=== PATIENT | female | born 2000 | race Caucasian/White ===

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

== ENCOUNTER 2020-02-01 16:19 | Inpatient (IN) | payer OTHER ==
[2020-02-01] MEDS ORDERED: Misoprostol 200 MCG Tab PO PRN (16:40)
[2020-02-01] MEDS ORDERED: Misoprostol 25 MCG (1/4 of 100 MCG) Tab VAG PRN ×2 (16:40)
[2020-02-01] MEDS ORDERED: Water For Irrigation,Sterile 1,000 ML Container IRR PRN (16:40)
[2020-02-01] MEDS ORDERED: Terbutaline 1 MG/ML SDV SUBCUT PRN (16:40)
[2020-02-01] MEDS ORDERED: Sodium Chloride 0.9% 2.5 ML Syringe FLUSH PRN (16:40)
[2020-02-01] MEDS ORDERED: Lidocaine 1% 50 ML MDV INJECT PRN (16:40)
[2020-02-01] MEDS ORDERED: Carboprost Tromethamine 250 MCG/1 ML Amp IM PRN (16:40)
[2020-02-01] MEDS ORDERED: Tranexamic Acid 1,000 MG in Sodium Chloride 0.9% 100 ML IV PRN (16:40)
[2020-02-01] MEDS ORDERED: Methylergonovine 0.2 MG/1 ML Amp IM PRN (16:40)
[2020-02-01] MEDS ORDERED: Sodium Chloride 0.9% 10 ML SDV IV PRN (16:40)
[2020-02-01] MEDS ORDERED: Ondansetron 4 MG/2 ML SDV IVPUSH PRN (16:40)
[2020-02-01] MEDS ORDERED: Sodium Chloride 0.9% 10 ML Syringe FLUSH PRN (16:40)
[2020-02-01] MEDS ORDERED: Nalbuphine 10 MG/1 ML Vial IVPUSH PRN (16:40)
[2020-02-01] MEDS ORDERED: Butorphanol 1 MG/ML SDV IVPUSH PRN (16:40)
[2020-02-01] MEDS ORDERED: Oxytocin/0.9 % Sodium Chloride 30 UNIT/500 ML BAG IV SCH ×2 (16:45)
[2020-02-01 18:14] LABS: BLOOD UREA NITROGEN,BUN 8 mg/dL (7.0-18.0); CARBON DIOXIDE,CO2 21.2 mmol/L (21.0-32.0); CHLORIDE,CL 104 mmol/L (98-107); GLUCOSE RANDOM 105 mg/dL (74-106); POTASSIUM,K 3.5 mmol/L (3.5-5.1); SODIUM,NA 140 mmol/L (136-145)
[2020-02-01] MEDS ORDERED: hydrOXYzine Pamoate 25 MG Cap PO PRN (21:42)
[2020-02-02] MEDS: Lactated Ringers 1,000 ML IV SCH ×3 (07:39→18:12)
[2020-02-02] MEDS ORDERED: Ropivacaine HCl/PF 100 ML ONE ×2 (07:46→18:01)
[2020-02-02] MEDS ORDERED: fentaNYL 100 MCG/2 ML SDV ONE ×3 (07:46→19:46)
--- NOTE | 2020-02-02 08:21 | PCM.PREANE ---
Preanesthetic Assessment - Anesthesia/Transfusion/Family Hx Anesthesia History: Prior Anesthesia Without Reaction Transfusion History: No Prior Transfusion(s) - Physical Assessment NPO Status Date: 02/02/20 NPO Status Time: 05:00 Height: 1.63 m Weight: 91.081 kg ASA Class: 1 - Lab Values: Laboratory Last Values WBC 12.92 K/uL (4.0-11.0) H 02/01/20 17:25 RBC 4.00 M/uL (4.30-5.90) L 02/01/20 17:25 Hgb 11.3 g/dL (12.0-16.0) L 02/01/20 17:25 Hct 34.9 % (36.0-46.0) L 02/01/20 17:25 MCV 87.3 fL (80.0-98.0) 02/01/20 17:25 MCH 28.3 pg (27.0-32.0) 02/01/20 17:25 MCHC 32.4 g/dL (31.0-37.0) 02/01/20 17:25 RDW Std Deviation 45.3 fl (28.0-62.0) 02/01/20 17:25 RDW Coeff of [place] 14 % (11.0-15.0) 02/01/20 17:25 Plt Count 331 K/uL (150-400) 02/01/20 17:25 MPV 11.30 fL (7.40-12.00) 02/01/20 17:25 Nucleated RBC % 0.0 /100WBC 02/01/20 17:25 Nucleated RBCs # 0 K/uL 02/01/20 17:25 Sodium 140 mmol/L (136-145) 02/01/20 17:25 Potassium 3.5 mmol/L (3.5-5.1) 02/01/20 17:25 Chloride 104 mmol/L (98-107) 02/01/20 17:25 Carbon Dioxide 21.2 mmol/L (21.0-32.0) 02/01/20 17:25 BUN 8 mg/dL (7.0-18.0) 02/01/20 17:25 Creatinine 0.9 mg/dL (0.6-1.0) 02/01/20 17:25 Est Cr Clr Drug Dosing 86.82 mL/min 02/01/20 17:25 Estimated GFR (MDRD) > 60.0 ml/min 02/01/20 17:25 Glucose 105 mg/dL (74-106) 02/01/20 17:25 Uric Acid 3.9 mg/dL (2.6-7.2) 02/01/20 17:25 Calcium 9.3 mg/dL (8.5-10.1) 02/01/20 17:25 Total Bilirubin 0.2 mg/dL (0.2-1.0) 02/01/20 17:25 AST 17 IU/L (15-37) 02/01/20 17:25 ALT 16 IU/L (14-63) 02/01/20 17:25 Alkaline Phosphatase 141 U/L (46-116) H 02/01/20 17:25 Total Protein 6.3 g/dL (6.4-8.2) L 02/01/20 17:25 Albumin 2.6 g/dL (3.4-5.0) L 02/01/20 17:25 Globulin 3.7 g/dL (2.6-4.0) 02/01/20 17:25 Albumin/Globulin Ratio 0.7 (0.9-1.6) L 02/01/20 17:25 Ur Random Creatinine 47.0 mg/dL 02/01/20 21:42 U Random Total Protein 11.6 mg/dL (<11.9) 02/01/20 21:42 Protein/Creatinin Ratio 0.2 02/01/20 21:42 Blood Type A POSITIVE 02/01/20 17:25 Antibody Screen NEGATIVE 02/01/20 17:25 - Allergies Allergies/Adverse Reactions: Allergies Allergy/AdvReac Type Severity Reaction Status Date / Time No Known Allergies Allergy Verified 02/01/20 16:39 - Acknowledgements Anesthesia Type Planned: Epidural Pt an Appropriate Candidate for the Planned Anesthesia: Yes Alternatives and Risks of Anesthesia Discussed w Pt/Guardian: Yes Pt/Guardian Understands and Agrees with Anesthesia Plan: Yes PreAnesthesia Questionnaire - Past Health History Medical/Surgical History: Denies Medical/Surgical History HEENT History: Reports: None 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: Neurological History: Reports: Seizure Psychiatric History: Reports: ADHD, Anxiety, Depression, PTSD - Past Surgical History HEENT Surgical History: Reports: Myringotomy w Tube(s) Neurological Surgical History: Reports: None - SUBSTANCE USE Smoking Status *Q: Never Smoker Recreational Drug Use History: No - HOME MEDS Home Medications: Home Meds Pnv No.95/Ferrous Fum/Folic AC [ Tablet] 1 tab PO DAILY 02/01/20 [ History] - CURRENT (IN HOUSE) MEDS Current Meds: Current Medications Butorphanol Tartrate (Stadol) 1 mg IVPUSH Q1H PRN PRN Reason: Pain Last Admin: 02/02/20 07:08 Dose: 1 mg Carboprost Tromethamine (Hemabate Ds) 250 mcg IM ASDIRECTED PRN PRN Reason: Post Hemorrhage Hydroxyzine Pamoate (Vistaril) 50 mg PO BEDTIME PRN PRN Reason: Insomnia Last Admin: 02/02/20 00:26 Dose: 50 mg Lactated Ringer's (Ringers, Lactated) 1,000 mls @ 150 mls/hr IV ASDIRECTED YARI Oxytocin/Sodium Chloride (Oxytocin 30 Unit/500 Ml-Ns) 30 unit in 500 mls @ 999 mls/hr IV TITRATE YARI Oxytocin/Sodium Chloride (Oxytocin 30 Unit/500 Ml-Ns) 30 unit in 500 mls @ 2 mls/hr IV TITRATE YARI; Protocol Tranexamic Acid 1,000 mg/ (Sodium Chloride) 110 mls @ 660 mls/hr IV ONETIME PRN PRN Reason: Bleeding Lidocaine HCl (Xylocaine 1%) 50 ml INJECT ONETIME PRN PRN Reason: Laceration repair Methylergonovine Maleate (Methergine) 0.2 mg IM ASDIRECTED PRN PRN Reason: Post Hemorrhage Misoprostol (Cytotec) 200 mcg PO ONETIME PRN PRN Reason: Post Hemorrhage Misoprostol (Cytotec) 25 mcg VAG ONETIME PRN PRN Reason: Cervical Ripening Last Admin: 02/01/20 18:26 Dose: 25 mcg Misoprostol (Cytotec) 25 mcg VAG Q6H PRN PRN Reason: Cervical Ripening Last Admin: 02/02/20 00:26 Dose: 25 mcg Nalbuphine HCl (Nubain) 10 mg IVPUSH Q1H PRN PRN Reason: Pain (severe 7-10) Ondansetron HCl (Zofran) 4 mg IVPUSH Q6H PRN PRN Reason: Nausea/Vomiting Sodium Chloride (Saline Flush) 10 ml FLUSH ASDIRECTED PRN PRN Reason: Keep Vein Open Sodium Chloride (Saline Flush) 2.5 ml FLUSH ASDIRECTED PRN PRN Reason: Keep Vein Open Sodium Chloride (Normal Saline) 10 ml IV ASDIRECTED PRN PRN Reason: IV Use Sterile Water (Sterile Water For Irrigation) 1,000 ml IRR ASDIRECTED PRN PRN Reason: delivery Terbutaline Sulfate (Brethine) 0.25 mg SUBCUT ASDIRECTED PRN PRN Reason: Tacysystole Discontinued Medications Fentanyl (Sublimaze) Confirm Administered Dose 100 mcg .ROUTE .[place]ovo-MED ONE Stop: 02/02/20 07:47 Ropivacaine (Naropin 0.2%) Confirm Administered Dose 100 mls @ as directed .ROUTE .MeggatelMED ONE Stop: 02/02/20 07:47
--- NOTE | 2020-02-02 08:24 | PCM.PRNOTE ---
- Free Text/Narrative Note: Anes Note Patient requests epidural for L&D. Sitting position, level L3-L4 midline approach. Sterile technique. Chloraprep scrub to lumbar area. Sterile fenestrated drape applied. Epidural space easily achieved. JOAQUIN at 4 cm. Cath threaded 5 cm with ease. Cath secured at 10 cm at skin using sterile clear adhesive dressing. 0755 Test 3 cc 1.5% lido with epi negative. 0800 Load 10 cc 0.2% ropivicaine with 1 mcg cc fentanyl in slow divided doses. 0805 Pump started with 90 cc same solution. Rate is 8 cc hr with 6 cc q 20 min prn bolus. Kristian well. Time with patient [id number] Erik Kaminski CRNA
[2020-02-02] MEDS ORDERED: Lidocaine 2% with EPINEPHrine 1:100,000 20 ML MDV ONE (19:47)
--- NOTE | 2020-02-02 19:54 | PCM.PRNOTE ---
- Free Text/Narrative Note: Anes NOte Epidural bag change. Current infusion is complete. A new 100 cc bag of 02.% ropiviciane with 1 mcg cc fentanyl added wasolaced. Rate is 8 cc hr with 6 cc q 20 min prn bolus. Patient reports excellent analgesia. Time with patient [id number] Erik Kaminski CRNA
--- NOTE | 2020-02-02 19:56 | PCM.PRNOTE ---
- Free Text/Narrative Note: Anes NOte Sitting dose. Patient reports slightly incomplete analgesia of the perineal area. A sitting dose consisting of 5 cc 2% lido with epi plus 100 mcg fentanyl was slowly injected into the epidural catheter. Epidural infusion also continues. Time with patient [id number] Erik Kaminski CRNA
[2020-02-02] MEDS ORDERED: oxyCODONE 5 MG Tab PO PRN (23:27)
[2020-02-02] MEDS ORDERED: Lanolin 100% Cream 7 GM Tube TOP PRN (23:27)
[2020-02-02] MEDS ORDERED: Docusate Sodium 100 MG Cap PO PRN (23:27)
[2020-02-02] MEDS ORDERED: Benzocaine/Menthol 20%-0.5% Spray 78 GM Cannister TOP PRN (23:27)
[2020-02-02] MEDS ORDERED: Witch Hazel Medicated Pads 40/Jar TOP PRN (23:27)
[2020-02-02] MEDS ORDERED: Bisacodyl 10 MG Supp RECTAL PRN (23:27)
--- NOTE | 2020-02-02 23:32 | PCM.DEL ---
L & D Note - General Info Date of Service: 02/02/20 Mother's Due Date: 02/21/20 - Delivery Note Labor: Induced by Oxytocin (induction for PROM) Cervical Ripening Method: Balloon Device, Misoprostil Delivery Outcome: Livebirth Infant Delivery Method: Spontaneous Vaginal Delivery-Single Presentation: Vertex Nuchal Cord: None Anesthesia Type: Epidural Episiotomy Type: None Laceration: Vaginal Suture type: Vicryl Suture size: 2-0 Placenta: Intact, Spontaneous Cord: 2 Vessels Resuscitation Needed: No : Stimulated, Warmed - General Info Date of Service: 02/02/20 - Patient Data Weight - Most Recent: 91.081 kg Med Orders - Current: Current Medications Butorphanol Tartrate (Stadol) 1 mg IVPUSH Q1H PRN PRN Reason: Pain Last Admin: 02/02/20 07:08 Dose: 1 mg Carboprost Tromethamine (Hemabate Ds) 250 mcg IM ASDIRECTED PRN PRN Reason: Post Hemorrhage Hydroxyzine Pamoate (Vistaril) 50 mg PO BEDTIME PRN PRN Reason: Insomnia Last Admin: 02/02/20 00:26 Dose: 50 mg Lactated Ringer's (Ringers, Lactated) 1,000 mls @ 150 mls/hr IV ASDIRECTED YARI Last Admin: 02/02/20 18:12 Dose: 150 mls/hr Oxytocin/Sodium Chloride (Oxytocin 30 Unit/500 Ml-Ns) 30 unit in 500 mls @ 999 mls/hr IV TITRATE YARI Oxytocin/Sodium Chloride (Oxytocin 30 Unit/500 Ml-Ns) 30 unit in 500 mls @ 2 mls/hr IV TITRATE YARI; Protocol Last Titration: 02/02/20 14:39 Dose: 22 munits/min, 22 mls/hr Tranexamic Acid 1,000 mg/ (Sodium Chloride) 110 mls @ 660 mls/hr IV ONETIME PRN PRN Reason: Bleeding Lidocaine HCl (Xylocaine 1%) 50 ml INJECT ONETIME PRN PRN Reason: Laceration repair Methylergonovine Maleate (Methergine) 0.2 mg IM ASDIRECTED PRN PRN Reason: Post Hemorrhage Misoprostol (Cytotec) 200 mcg PO ONETIME PRN PRN Reason: Post Hemorrhage Misoprostol (Cytotec) 25 mcg VAG ONETIME PRN PRN Reason: Cervical Ripening Last Admin: 02/01/20 18:26 Dose: 25 mcg Misoprostol (Cytotec) 25 mcg VAG Q6H PRN PRN Reason: Cervical Ripening Last Admin: 02/02/20 00:26 Dose: 25 mcg Nalbuphine HCl (Nubain) 10 mg IVPUSH Q1H PRN PRN Reason: Pain (severe 7-10) Ondansetron HCl (Zofran) 4 mg IVPUSH Q6H PRN PRN Reason: Nausea/Vomiting Last Admin: 02/02/20 09:20 Dose: 4 mg Sodium Chloride (Saline Flush) 10 ml FLUSH ASDIRECTED PRN PRN Reason: Keep Vein Open Sodium Chloride (Saline Flush) 2.5 ml FLUSH ASDIRECTED PRN PRN Reason: Keep Vein Open Sodium Chloride (Normal Saline) 10 ml IV ASDIRECTED PRN PRN Reason: IV Use Sterile Water (Sterile Water For Irrigation) 1,000 ml IRR ASDIRECTED PRN PRN Reason: delivery Terbutaline Sulfate (Brethine) 0.25 mg SUBCUT ASDIRECTED PRN PRN Reason: Tacysystole Discontinued Medications Fentanyl (Sublimaze) Confirm Administered Dose 100 mcg .ROUTE .STK-MED ONE Stop: 02/02/20 07:47 Last Admin: 02/02/20 09:42 Dose: Not Given Fentanyl (Sublimaze) Confirm Administered Dose 100 mcg .ROUTE .STK-MED ONE Stop: 02/02/20 18:02 Fentanyl (Sublimaze) Confirm Administered Dose 100 mcg .ROUTE .STK-MED ONE Stop: 02/02/20 19:47 Ropivacaine (Naropin 0.2%) Confirm Administered Dose 100 mls @ as directed .ROUTE .STK-MED ONE Stop: 02/02/20 07:47 Last Admin: 02/02/20 09:42 Dose: Not Given Ropivacaine (Naropin 0.2%) Confirm Administered Dose 100 mls @ as directed .ROUTE .STK-MED ONE Stop: 02/02/20 18:02 - Problem List & Annotations (1) Vaginal delivery SNOMED Code(s): 276946365 Code(s): O80 - ENCOUNTER FOR FULL-TERM UNCOMPLICATED DELIVERY Status: Acute Current Visit: Yes - Problem List Review Problem List Initiated/Reviewed/Updated: No - My Orders Last 24 Hours: My Active Orders 02/02/20 23:27 Patient Status [ADT] Routine May Shower [RC] ASDIRECTED Notify Provider Vital Signs [RC] ASDIRECTED Up ad Nadya [RC] ASDIRECTED Vital Signs [RC] PER UNIT ROUTINE Acetaminophen [Tylenol Extra Strength] 1,000 mg PO Q6H PRN Benzocaine/Menthol [Dermoplast Pain Relief 20%-0.5% [place]] 78 gm TOP ASDIRECTED PRN Docusate Sodium [Colace] 100 mg PO BID PRN Ibuprofen [Motrin] 800 mg PO Q8H PRN Lanolin [Lansinoh HPA] See Dose Instructions TOP ASDIRECTED PRN bisacodyL [Dulcolax] 10 mg RECTAL ONETIME PRN oxyCODONE 5 mg PO Q2H PRN witch Bernice [Tucks] 1 pad TOP ASDIRECTED PRN Assess Lochia [WOMSER] Per Unit Routine Assess Uterine Involution [WOMSER] Per Unit Routine Breast Pump [WOMSER] Per Unit Routine Peripheral IV Discontinue [OM.PC] Routine 02/02/20 23:28 Cooling Warming Measures [RC] ASDIRECTED Ice Therapy [OM.PC] Per Unit Routine Perineal Care [OM.PC] Per Unit Routine Sitz Bath [OM.PC] Per Unit Routine 02/02/20 Dinner Regular Diet [DIET] 02/03/20 05:11 HEMOGLOBIN/HEMATOCRIT,HH [HEME] Timed - Assessment Assessment:: 19yo s/p at 37w2d - Plan Plan:: Admit to unit for routine care.
--- NOTE | 2020-02-03 00:30 | OR ---
SURGEON: Dayana Roldan MD DATE OF PROCEDURE: 02/02/2020 PREOPERATIVE DIAGNOSES: 1. A 19-year-old G1, P0-0 at 37 weeks 1 day gestation. 2. Premature rupture of membranes. 3. Group B Streptococcus negative. 4. Late care. POSTOPERATIVE DIAGNOSES: 1. A 19-year-old G1, P1-0-0-1 status post spontaneous vaginal delivery at 37 weeks 2 days' gestation. 2. Group B Streptococcus negative. 3. Late care. PROCEDURE: Spontaneous vaginal delivery and repair of vaginal laceration. PRIMARY SURGEON: Dr. Dayana Roldan, ANESTHESIA: Epidural. ESTIMATED BLOOD LOSS: 300 mL. FINDINGS: Live male in cephalic presentation. scores 9 and 9 at 1 and 5 minutes respectively. Weight pending. Placenta intact with 3-vessel cord. Vaginal laceration. INDICATIONS: This is a 19-year-old G1, P0, who presented at 37 weeks 1 day gestation, complaining of leakage of fluid. She had presented the evening prior at 37 weeks 0 day gestation, however, and leakage of fluid was ruled out. At 37 and 1, she presented to the clinic, complaining again of leakage of fluid and an AmniSure was positive. She was admitted to Labor and Delivery for induction of labor due to premature rupture of membranes. Induction of labor was started with Cytotec at approximately 1 cm dilated. A Collado bulb was placed. The Collado bulb was removed when she was 5 cm dilated. She received an epidural for pain control. She was started on Pitocin for continued induction of labor. She progressed to complete cervical dilation and began pushing. I was called to the room. DESCRIPTION OF PROCEDURE: I arrived to the room and the patient's cervix was completely dilated with scalp at +4 station. Over the next 2 contractions, she pushed and delivered a live male . The head was delivered followed by the shoulders and remainder of the body. The infant was placed on the maternal abdomen. After approximately 60 seconds, cord was clamped and cut. The placenta then delivered via the Lee-Chakraborty maneuver, intact and with 3-vessel cord. Cord blood was obtained. The perineum was inspected and a vaginal laceration was noted. This was repaired to anatomy and hemostasis with 2-0 Vicryl. Estimated blood loss was 300 mL. The patient and infant tolerated the delivery well. JESSICA / MODL /[id number]
[2020-02-03] MEDS: Ibuprofen 800 MG Tab PO PRN ×2 (01:20→08:46)
--- NOTE | 2020-02-03 08:39 | PCM48HPAN ---
Post Anesthesia Note - EVALUATION WITHIN 48HRS OF ANESTHETIC Vital Signs in Normal Range: Yes Patient Participated in Evaluation: Yes Respiratory Function Stable: Yes Airway Patent: Yes Cardiovascular Function Stable: Yes Hydration Status Stable: Yes Pain Control Satisfactory: Yes Nausea and Vomiting Control Satisfactory: Yes Mental Status Recovered: Yes Vital Signs: Last Vital Signs Temp 35.9 C L 02/03/20 08:00 Pulse 72 02/03/20 08:00 Resp 16 02/03/20 08:00 BP 121/62 02/03/20 08:00 Pulse Ox 96 02/03/20 08:00
[2020-02-03] MEDS: Acetaminophen 500 MG Tab PO PRN ×2 (08:47→15:28)
--- NOTE | 2020-02-03 16:08 | PCM.PNPP ---
- General Info Date of Service: 02/03/20 Subjective Update: Patient without complaints today. Struggled with overnight, is currently bottle feeding. Minimal lochia and pain. Tolerating oral intake, voiding, ambulating. Functional Status: Reports: Pain Controlled, Tolerating Diet, Ambulating, Urinating - Review of Systems General: Reports: No Symptoms HEENT: Reports: No Symptoms Pulmonary: Reports: No Symptoms Cardiovascular: Reports: No Symptoms Gastrointestinal: Reports: No Symptoms Genitourinary: Reports: No Symptoms Musculoskeletal: Reports: No Symptoms Skin: Reports: No Symptoms Neurological: Reports: No Symptoms Psychiatric: Reports: No Symptoms - Patient Data Vital Signs - Most Recent: Last Vital Signs Temp 35.9 C L 02/03/20 08:00 Pulse 72 02/03/20 08:00 Resp 16 02/03/20 08:00 BP 121/62 02/03/20 08:00 Pulse Ox 96 02/03/20 08:00 Weight - Most Recent: 91.081 kg Lab Results - Last 24 Hours: Laboratory Results - last 24 hr 02/03/20 Range/Units 05:30 Hgb 10.6 L (12.0-16.0) g/dL Hct 33.3 L (36.0-46.0) % Med Orders - Current: Current Medications Acetaminophen (Tylenol Extra Strength) 1,000 mg PO Q6H PRN PRN Reason: Pain Last Admin: 02/03/20 15:28 Dose: 1,000 mg Benzocaine/Menthol (Dermoplast Pain Relief 20%-0.5% Edison) 78 gm TOP ASDIRECTED PRN PRN Reason: Perineal Comfort Measure Last Admin: 02/03/20 01:21 Dose: 78 gm Bisacodyl (Dulcolax) 10 mg RECTAL ONETIME PRN PRN Reason: Constipation Butorphanol Tartrate (Stadol) 1 mg IVPUSH Q1H PRN PRN Reason: Pain Last Admin: 02/02/20 07:08 Dose: 1 mg Carboprost Tromethamine (Hemabate Ds) 250 mcg IM ASDIRECTED PRN PRN Reason: Post Hemorrhage Docusate Sodium (Colace) 100 mg PO BID PRN PRN Reason: Constipation Last Admin: 02/03/20 08:47 Dose: 100 mg Emollient Ointment (Lansinoh Hpa) 0 gm TOP ASDIRECTED PRN PRN Reason: Sore Nipples Last Admin: 02/03/20 01:20 Dose: 7 gm Hydroxyzine Pamoate (Vistaril) 50 mg PO BEDTIME PRN PRN Reason: Insomnia Last Admin: 02/02/20 00:26 Dose: 50 mg Lactated Ringer's (Ringers, Lactated) 1,000 mls @ 150 mls/hr IV ASDIRECTED YARI Last Admin: 02/02/20 18:12 Dose: 150 mls/hr Oxytocin/Sodium Chloride (Oxytocin 30 Unit/500 Ml-Ns) 30 unit in 500 mls @ 999 mls/hr IV TITRATE YARI Oxytocin/Sodium Chloride (Oxytocin 30 Unit/500 Ml-Ns) 30 unit in 500 mls @ 2 mls/hr IV TITRATE YARI; Protocol Last Titration: 02/02/20 14:39 Dose: 22 munits/min, 22 mls/hr Tranexamic Acid 1,000 mg/ (Sodium Chloride) 110 mls @ 660 mls/hr IV ONETIME PRN PRN Reason: Bleeding Ibuprofen (Motrin) 800 mg PO Q8H PRN PRN Reason: Pain Last Admin: 02/03/20 08:46 Dose: 800 mg Lidocaine HCl (Xylocaine 1%) 50 ml INJECT ONETIME PRN PRN Reason: Laceration repair Methylergonovine Maleate (Methergine) 0.2 mg IM ASDIRECTED PRN PRN Reason: Post Hemorrhage Misoprostol (Cytotec) 200 mcg PO ONETIME PRN PRN Reason: Post Hemorrhage Misoprostol (Cytotec) 25 mcg VAG ONETIME PRN PRN Reason: Cervical Ripening Last Admin: 02/01/20 18:26 Dose: 25 mcg Misoprostol (Cytotec) 25 mcg VAG Q6H PRN PRN Reason: Cervical Ripening Last Admin: 02/02/20 00:26 Dose: 25 mcg Nalbuphine HCl (Nubain) 10 mg IVPUSH Q1H PRN PRN Reason: Pain (severe 7-10) Ondansetron HCl (Zofran) 4 mg IVPUSH Q6H PRN PRN Reason: Nausea/Vomiting Last Admin: 02/02/20 09:20 Dose: 4 mg Oxycodone HCl (Oxycodone) 5 mg PO Q2H PRN PRN Reason: Pain Sodium Chloride (Saline Flush) 10 ml FLUSH ASDIRECTED PRN PRN Reason: Keep Vein Open Sodium Chloride (Saline Flush) 2.5 ml FLUSH ASDIRECTED PRN PRN Reason: Keep Vein Open Sodium Chloride (Normal Saline) 10 ml IV ASDIRECTED PRN PRN Reason: IV Use Sterile Water (Sterile Water For Irrigation) 1,000 ml IRR ASDIRECTED PRN PRN Reason: delivery Terbutaline Sulfate (Brethine) 0.25 mg SUBCUT ASDIRECTED PRN PRN Reason: Tacysystole Witch Bernice (Tucks) 1 pad TOP ASDIRECTED PRN PRN Reason: comfort care Discontinued Medications Fentanyl (Sublimaze) Confirm Administered Dose 100 mcg .ROUTE .STK-MED ONE Stop: 02/02/20 07:47 Last Admin: 02/02/20 09:42 Dose: Not Given Fentanyl (Sublimaze) Confirm Administered Dose 100 mcg .ROUTE .STK-MED ONE Stop: 02/02/20 18:02 Fentanyl (Sublimaze) Confirm Administered Dose 100 mcg .ROUTE .STCredit [employer]-MED ONE Stop: 02/02/20 19:47 Ropivacaine (Naropin 0.2%) Confirm Administered Dose 100 mls @ as directed .ROUTE .STCredit [employer]-MED ONE Stop: 02/02/20 07:47 Last Admin: 02/02/20 09:42 Dose: Not Given Ropivacaine (Naropin 0.2%) Confirm Administered Dose 100 mls @ as directed .ROUTE .STK-MED ONE Stop: 02/02/20 18:02 Lidocaine/Epinephrine (Xylocaine 2% With Epinephrine 1:100,000) 20 ml .ROUTE .STK-MED ONE Stop: 02/02/20 19:48 - Infant Interaction Disposition, : at Bedside Feeding: Attempted ; Nursed Fair/Poor, Bottle Fed Support Person: Significant Other - Recovery Exam Fundal Tone: Firm Fundal Level: 2 Fingerbreadths Below Umbilicus Fundal Placement: Midline Lochia Amount: Small Lochia Color: Rubra/Red Bladder Status: Nonpalpable, Voiding Urinary Elimination: Voided - Exam General: Alert, Oriented Neck: Supple Lungs: Clear to Auscultation Cardiovascular: Regular Rate, Regular Rhythm GI/Abdominal Exam: Soft, Non-Tender Extremities: Non-Tender, No Pedal Edema Skin: Warm, Dry, Intact Neurological: No New Focal Deficit Psy/Mental Status: Alert, Normal Affect, Normal Mood - Problem List & Annotations (1) Vaginal delivery SNOMED Code(s): 478058737 Code(s): O80 - ENCOUNTER FOR FULL-TERM UNCOMPLICATED DELIVERY Status: Acute Current Visit: Yes - Problem List Review Problem List Initiated/Reviewed/Updated: Yes - My Orders Last 24 Hours: My Active Orders 02/02/20 23:27 Patient Status [ADT] Routine Notify Provider Vital Signs [RC] ASDIRECTED Acetaminophen [Tylenol Extra Strength] 1,000 mg PO Q6H PRN Benzocaine/Menthol [Dermoplast Pain Relief 20%-0.5% Edison] 78 gm TOP ASDIRECTED PRN Docusate Sodium [Colace] 100 mg PO BID PRN Ibuprofen [Motrin] 800 mg PO Q8H PRN Lanolin [Lansinoh HPA] See Dose Instructions TOP ASDIRECTED PRN bisacodyL [Dulcolax] 10 mg RECTAL ONETIME PRN oxyCODONE 5 mg PO Q2H PRN witch Bernice [Tucks] 1 pad TOP ASDIRECTED PRN Assess Lochia [WOMSER] Per Unit Routine Assess Uterine Involution [WOMSER] Per Unit Routine Breast Pump [WOMSER] Per Unit Routine Peripheral IV Discontinue [OM.PC] Routine 02/02/20 23:28 Ice Therapy [OM.PC] Per Unit Routine Perineal Care [OM.PC] Per Unit Routine Sitz Bath [OM.PC] Per Unit Routine 02/02/20 Dinner Regular Diet [DIET] - Assessment Assessment:: 19yo s/p at 37w2d, PPD#1 - Plan Plan:: Patient desires discharge home at 24-hours if infant cleared. Reviewed discharge instructions. All questions answered.
[2020-02-03 20:01] VITALS: BP 138/74; PULSE 74
== END 2020-02-03 23:59 | disposition home or self-care (01) | DRG 806 ==
LOC: MW.OB 16:19 → OBSVTOIN 22:58 → MW.OB 22:58
PROVIDERS: ADMIT Obstetrics & Gynecology; ATTEND Obstetrics & Gynecology
PROC: 10E0XZZ Delivery of Products of Conception, External Approach (ICD-10-PCS; principal; 2020-02-01)
PROC: 3E0P7VZ Introduction of Hormone into Female Reproductive, Via Natural or Artificial Opening (ICD-10-PCS; 2020-02-01)
PROC: 3E033VJ Introduction of Other Hormone into Peripheral Vein, Percutaneous Approach (ICD-10-PCS; 2020-02-01)
PROC: 0HQ9XZZ Repair Perineum Skin, External Approach (ICD-10-PCS; 2020-02-01)
PROC: 0U7C7ZZ Dilation of Cervix, Via Natural or Artificial Opening (ICD-10-PCS; 2020-02-01)
PROC: 3E0R3BZ Introduction of Anesthetic Agent into Spinal Canal, Percutaneous Approach (ICD-10-PCS; 2020-02-01)
DX: O75.3 Other infection during labor (principal); O47.1 False labor at or after 37 completed weeks of gestation; Z37.0 Single live birth; Z3A.37 37 weeks gestation of pregnancy; O12.14 Gestational proteinuria, complicating childbirth
CPT/HCPCS: 36415; 51702; 59025; 59200; 59409; 80053; 82570; 84156; 84550; 85014; 85018; 85027; 86592; 86593; 86850; 86900; 86901; A9270-GY; J0595; J2405; J2590; J2795; J3010; J7120

== ENCOUNTER 2022-02-26 09:38 | Inpatient (IN) | payer OTHER ==
[2022-02-26] MEDS ORDERED: Methylergonovine 0.2 MG/1 ML Amp IM PRN (09:43)
[2022-02-26] MEDS ORDERED: Sodium Chloride 0.9% 20 ML SDV IV PRN (09:43)
[2022-02-26] MEDS ORDERED: Sodium Chloride 0.9% 2.5 ML Syringe FLUSH PRN (09:43)
[2022-02-26] MEDS ORDERED: Misoprostol 200 MCG Tab PO PRN (09:43)
[2022-02-26] MEDS ORDERED: Sodium Chloride 0.9% 10 ML Syringe FLUSH PRN (09:43)
[2022-02-26] MEDS ORDERED: Terbutaline 1 MG/ML SDV SUBCUT PRN (09:43)
[2022-02-26] MEDS ORDERED: Carboprost Tromethamine 250 MCG/1 ML Amp IM PRN (09:43)
[2022-02-26] MEDS ORDERED: Tranexamic Acid 1,000 MG in Sodium Chloride 0.9% 100 ML IV PRN ×2 (09:43→23:44)
[2022-02-26] MEDS ORDERED: Misoprostol 25 MCG (1/4 of 100 MCG) Tab VAG PRN ×2 (09:43)
[2022-02-26] MEDS ORDERED: Water For Irrigation,Sterile 1,000 ML Container IRR PRN (09:43)
[2022-02-26] MEDS ORDERED: Lidocaine 1% 50 ML MDV INJECT PRN (09:43)
[2022-02-26] MEDS ORDERED: Butorphanol 1 MG/ML SDV IVPUSH PRN (09:43)
[2022-02-26] MEDS ORDERED: Oxytocin/0.9 % Sodium Chloride 30 UNIT/500 ML BAG IV SCH ×2 (09:45)
[2022-02-26] MEDS ORDERED: Labetalol 100 MG/20 ML MDV IVPUSH PRN ×2 (10:30→18:47)
[2022-02-26 11:16] LABS: BLOOD UREA NITROGEN,BUN 10 mg/dL (7.0-18.0); CARBON DIOXIDE,CO2 20.2 mmol/L (21.0-32.0); CHLORIDE,CL 103 mmol/L (98-107); GLUCOSE RANDOM 99 mg/dL (74-106); POTASSIUM,K 3.5 mmol/L (3.5-5.1); SODIUM,NA 136 mmol/L (136-145)
[2022-02-26] MEDS: Lactated Ringers 1,000 ML IV SCH ×4 (11:17→20:57)
[2022-02-26] MEDS ORDERED: Ropivacaine in NACL,ISO-OSM/PF 400 ML ONE (20:08)
[2022-02-26] MEDS ORDERED: Ropivacaine in NACL,ISO-OSM/PF 800 MG in Premix Bag 1 BAG EPIDUR SCH ×2 (20:30)
[2022-02-26] MEDS ORDERED: Bupivacaine 0.25% 10 ML SDV ONE (20:32)
[2022-02-26] MEDS: ePHEDrine 50 MG/ML SDV IVPUSH PRN ×3 (22:22→22:41)
[2022-02-26] MEDS ORDERED: Lanolin 100% Cream 7 GM Tube TOP PRN (23:44)
[2022-02-26] MEDS ORDERED: Ibuprofen 800 MG Tab PO PRN (23:44)
[2022-02-26] MEDS ORDERED: Ibuprofen 400 MG Tab PO PRN (23:44)
[2022-02-26] MEDS ORDERED: Bisacodyl 10 MG Supp RECTAL PRN (23:44)
[2022-02-26] MEDS ORDERED: Witch Hazel Medicated Pads 40/Jar TOP PRN (23:44)
[2022-02-26] MEDS ORDERED: Acetaminophen 500 MG Tab PO PRN ×2 (23:44)
[2022-02-26] MEDS ORDERED: Benzocaine/Menthol 20%-0.5% Spray 78 GM Cannister TOP PRN (23:44)
[2022-02-26] MEDS ORDERED: Docusate Sodium 100 MG Cap PO PRN (23:44)
[2022-02-27] MEDS: Prenatal Multivitamin with Calcium/Folic Acid/Iron Tab PO SCH (20:21)
[2022-02-28 09:15] VITALS: BP 135/55; PULSE 68
[2022-02-28] MEDS: Prenatal Multivitamin with Calcium/Folic Acid/Iron Tab PO SCH (09:52)
== END 2022-02-28 12:36 | disposition home or self-care (01) | DRG 807 ==
LOC: MW.OBCHECK 09:38 → MW.OB 09:39 → MW.OBCHECK 23:23 → MW.OB 23:23 → OBSVTOIN 23:24 → MW.OB 02-27 07:29
PROVIDERS: ADMIT Obstetrics & Gynecology; ATTEND Obstetrics & Gynecology
PROC: 10E0XZZ Delivery of Products of Conception, External Approach (ICD-10-PCS; principal; 2022-02-26)
PROC: 0KQM0ZZ Repair Perineum Muscle, Open Approach (ICD-10-PCS; 2022-02-26)
PROC: 10907ZC Drainage of Amniotic Fluid, Therapeutic from Products of Conception, Via Natural or Artificial Opening (ICD-10-PCS; 2022-02-26)
PROC: 3E033VJ Introduction of Other Hormone into Peripheral Vein, Percutaneous Approach (ICD-10-PCS; 2022-02-26)
PROC: 3E0R3BZ Introduction of Anesthetic Agent into Spinal Canal, Percutaneous Approach (ICD-10-PCS; 2022-02-26)
PROC: 00HU33Z Insertion of Infusion Device into Spinal Canal, Percutaneous Approach (ICD-10-PCS; 2022-02-26)
DX: O13.4 Gestational [pregnancy-induced] hypertension without significant proteinuria, complicating childbirth (principal); Z37.0 Single live birth; Z3A.39 39 weeks gestation of pregnancy; O70.0 First degree perineal laceration during delivery; Z20.822 Contact with and (suspected) exposure to COVID-19
CPT/HCPCS: 01967; 36415; 51702; 59025; 59409; 80053; 82570; 82803; 84156; 84550; 84560; 85014; 85018; 85027; 86592; 86850; 86900; 86901; A9270-GY; J2590; J2795; J3490; J7120; U0002

== ENCOUNTER 2023-03-26 08:04 | Emergency (ER) | payer OTHER ==
[2023-03-26] MEDS ORDERED: Ibuprofen 600 MG Tab PO ONE (09:01)
[2023-03-26 09:12] VITALS: BP 114/65; PULSE 87
== END 2023-03-26 09:17 | disposition home or self-care (01) ==
LOC: MW.ED 08:04
DX: S46.312A Strain of muscle, fascia and tendon of triceps, left arm, initial encounter (principal); X50.9XXA Other and unspecified overexertion or strenuous movements or postures, initial encounter
CPT/HCPCS: 99283; A9270; 99282

== ENCOUNTER 2024-10-23 02:04 | Emergency (ER) | payer MEDICAID, OTHER ==
[2024-10-23 02:15] VITALS: BP 135/62; PULSE 74
[2024-10-23] MEDS: Ketorolac 30 MG/ML SDV IVPUSH ONE (02:42)
[2024-10-23] MEDS: Ondansetron 4 MG/2 ML SDV IVPUSH ONE (02:42)
[2024-10-23] MEDS: Sodium Chloride 0.9% 1,000 ML IV SCH ×2 (02:42→03:26)
[2024-10-23 02:50] LABS: BASOPHILS ABSOLUTE AUTO 0.05 K/uL (0.00-0.20); BASOPHILS PERCENT AUTO 0.3 % (0.0-1.0); EOSINOPHILS ABSOLUTE AUTO 0.09 K/uL (0.00-0.45); EOSINOPHILS PERCENT AUTO 0.5 % (0.0-6.0); HEMATOCRIT 44.8 % (37.0-47.0); HEMOGLOBIN 14.8 g/dL (12.0-16.0); IMMATURE GRAN ABSOLUTE AUTO 0.08 K/uL (0.00-0.05); IMMATURE GRAN PERCENT AUTO 0.4 % (0.0-0.4); LYMPHOCYTES ABSOLUTE AUTO 0.81 K/uL (1.00-4.80); LYMPHOCYTES PERCENT AUTO 4.3 % (24.0-44.0); MEAN CORPUSCULAR HEMOGLOBIN 28.6 pg (28.0-32.0); MEAN CORPUSCULAR VOLUME 86.5 fL (83.0-99.0); MONOCYTES ABSOLUTE AUTO 0.44 K/uL (0.00-0.80); MONOCYTES PERCENT AUTO 2.3 % (0.0-8.0); NEUTROPHILS ABSOLUTE AUTO 17.45 K/uL (1.80-7.70); NEUTROPHILS PERCENT AUTO 92.2 % (41.0-71.0); PLATELET COUNT,PLT 409 K/uL (150-400); RED BLOOD CELL COUNT 5.18 M/uL (4.10-5.30); WHITE BLOOD CELL COUNT,WBC 18.92 K/uL (3.9-11.3)
[2024-10-23 03:14] LABS: ALANINE AMINOTRANSFERASE,ALT 17 IU/L (14-63); ALBUMIN 4.3 g/dL (3.4-5.0); ALKALINE PHOSPHATASE 88 U/L (46-116); ASPARTATE AMNIOTRANSFERASE,AST 18 IU/L (15-37); BILIRUBIN TOTAL 0.8 mg/dL (0.2-1.0); BLOOD UREA NITROGEN,BUN 18 mg/dL (7.0-18.0); CALCIUM 9.6 mg/dL (8.5-10.1); CHLORIDE,CL 102 mmol/L (98-107); CREATININE 1.2 mg/dL (0.6-1.0); EST CRCL DRUG DOSING (CG) 65.61 mL/min; GLUCOSE RANDOM 137 mg/dL (74-106); LIPASE 38 U/L (16-77); MAGNESIUM 1.7 mg/dL (1.8-2.4); POTASSIUM,K 4.3 mmol/L (3.5-5.1); PROTEIN TOTAL,TP 8.5 g/dL (6.4-8.2); SODIUM,NA 137 mmol/L (136-145)
[2024-10-23 03:15] LABS: ESTIMATED GFR 65 mL/min (>60)
[2024-10-23] MEDS: Magnesium Sulfate/Water Premix 2 GM in Premix Bag 1 BAG IV ONE (03:26)
== END 2024-10-23 05:02 | disposition home or self-care (01) ==
LOC: MW.ED 02:04
DX: R11.2 Nausea with vomiting, unspecified (principal); Z79.899 Other long term (current) drug therapy
CPT/HCPCS: 36415; 71045; 80053; 83690; 83735; 84484; 84703; 85025; 93005; 96361; 96365; 96375; 99285; J1885; J2405; J3475; J7030